=== PATIENT | male | born 1950 | race Caucasian/White ===

== ENCOUNTER 2019-06-04 13:59 | Emergency (ER) | payer OTHER ==
[~2019-06-04] VITALS: Ht 180.3 cm; Wt 117.9 kg
[2019-06-04] MEDS ORDERED: MOTRIN PM CAPL1 EACH (14:51)
[2019-06-04] MEDS ORDERED: GLIMEPIRIDE4 MG (14:51)
[2019-06-04] MEDS ORDERED: NEURONTIN800 MG (14:51)
[2019-06-04] MEDS ORDERED: ULTRAM50 MG (14:51)
[2019-06-04] MEDS ORDERED: SKELAXIN800 MG (14:52)
== END 2019-06-04 20:16 | disposition home or self-care (01) ==
LOC: ER 13:59
DX: T54.94XA Toxic effect of unspecified corrosive substance, undetermined, initial encounter (principal); J68.8 Other respiratory conditions due to chemicals, gases, fumes and vapors; R06.02 Shortness of breath; Y92.89 Other specified places as the place of occurrence of the external cause